=== PATIENT | female | born 1945 | race Caucasian/White ===

== ENCOUNTER → 2016-07-27 | Outpatient (CLI) | payer MEDICARE, OTHER ==
[~2016-07-27] MED LIST: ASPI81 PO; CLON1PAT TD; METF500T4 PO; METO50 PO; VALS160T2 PO
[2016-07-27 11:23] LABS: HEMATOCRIT 40.7 % (36-46); HEMOGLOBIN 13.4 g/dL (12.0-16.0)
[2016-07-27 11:34] LABS: CALCIUM, TOTAL 8.5 mg/dL (8.8-10.5); CHOL/HDL RATIO 2.2 (3.9-5.7); CREATININE 1.33 mg/dL (0.60-1.30)
== END | disposition home or self-care (01) ==
LOC: LABPV 07:17
PROVIDERS: ATTEND Internal Medicine Nephrology
DX: I12.9 Hypertensive chronic kidney disease with stage 1 through stage 4 chronic kidney disease, or unspecified chronic kidney disease (principal); N18.2 Chronic kidney disease, stage 2 (mild); E55.9 Vitamin D deficiency, unspecified; E11.9 Type 2 diabetes mellitus without complications; R60.9 Edema, unspecified; R80.9 Proteinuria, unspecified
CPT/HCPCS: 82306; 83970; 84100; 85014; 85018

== ENCOUNTER → 2016-11-06 | Outpatient (CLI) | payer MEDICARE, MEDICAID ==
[2016-11-06 12:24] LABS: HEMOGLOBIN A1C 6.9 % (4.5-6.2)
[2016-11-06 12:36] LABS: CALCIUM, TOTAL 8.4 mg/dL (8.8-10.5); CREATININE 1.58 mg/dL (0.60-1.30); POTASSIUM 4.3 mmol/L (3.5-5.1)
== END | disposition home or self-care (01) ==
LOC: LABPV 09:30
PROVIDERS: ATTEND Internal Medicine Nephrology
DX: E11.22 Type 2 diabetes mellitus with diabetic chronic kidney disease (principal); N18.2 Chronic kidney disease, stage 2 (mild); R60.9 Edema, unspecified; E55.9 Vitamin D deficiency, unspecified
CPT/HCPCS: 82306; 83036

== ENCOUNTER 2016-11-07 17:33 | Emergency (ER) | payer MEDICARE, MEDICAID ==
[~2016-11-07] VITALS: Ht 152.4 cm; Wt 77.0 kg
[2016-11-07] MEDS ORDERED: ACETAMINOPHEN 325 MG TABLET PO ONE (19:00)
[2016-11-07 19:03] LABS: BASOPHILS % (AUTO) 0.4 % (0.0-2.0); EOSINOPHILS % (AUTO) 2.9 % (1.0-6.0); HEMOGLOBIN 11.9 g/dL (12.0-16.0); LYMPHOCYTES # (AUTO) 1.4 K/uL (1.0-4.8); LYMPHOCYTES % (AUTO) 18.5 % (22.0-44.0); MEAN CORPUSCULAR HEMOGLOBIN 29.8 pg (26.0-34.0); MEAN CORPUSCULAR HGB CONC 32.1 G/dL (31.0-37.0); MEAN CORPUSCULAR VOLUME 93 fL (80-100); MONOCYTES # (AUTO) 0.5 K/uL (0.1-1.0); MONOCYTES % (AUTO) 6.8 % (2.0-9.0); NEUTROPHILS # (AUTO) 5.4 K/uL (1.8-7.7); NEUTROPHILS % (AUTO) 71.4 % (40.0-70.0); PLATELET COUNT (AUTO) 184 K/uL (150-450); RED BLOOD CELL COUNT(AUTO) 3.98 MIL/uL (4.00-5.20); RED CELL DISTRIBUTION WIDTH 13.9 % (11.5-14.5); WHITE BLOOD COUNT (AUTO) 7.6 K/uL (4.5-11.0)
[2016-11-07 19:13] LABS: INR 0.9 (0.9-1.1)
[2016-11-07 19:15] LABS: CALCIUM, TOTAL 8.5 mg/dL (8.8-10.5); CREATININE 1.73 mg/dL (0.60-1.30); POTASSIUM 4.5 mmol/L (3.5-5.1)
[2016-11-07] MEDS ORDERED: LEVOFLOXACIN 500 MG/D5% WATER 100 ML IV ONE (19:15)
[2016-11-07 19:20] LABS: ALBUMIN 3.3 g/dL (3.4-5.0); BILIRUBIN,TOTAL 0.3 mg/dL (0.1-1.0); TOTAL PROTEIN, SERUM 6.5 g/dL (6.4-8.2)
[2016-11-07] MEDS ORDERED: SODIUM CHLORIDE 0.9% 1,000 ML IV ONE (19:45)
[2016-11-07 22:56] LABS: APPEARANCE,URINE CLEAR (CLEAR); GLUCOSE, URINE (UA) 100 mg/dL (NEGATIVE); KETONES,URINE NEGATIVE (NEGATIVE); LEUKOCYTE ESTERASE ,URINE NEGATIVE (NEGATIVE); OCCULT BLOOD,URINE TRACE (NEGATIVE); PROTEIN,URINE SEE CONFIRM (NEGATIVE)
[2016-11-07 22:57] LABS: ADD UA MICROSCOPIC YES
[2016-11-07 23:01] LABS: SQUAMOUS EPITHELIAL CELL,UR Few /LPF (None Seen); SULFOSALICYLIC ACID,URINE 2+ (Negative); WBC,URINE 0-2 /HPF (0-5)
[2016-11-08 01:28] VITALS: BP 156/87
== END 2016-11-08 01:44 | disposition home or self-care (01) ==
LOC: EMS 17:34
DX: R19.7 Diarrhea, unspecified (principal); E11.9 Type 2 diabetes mellitus without complications; I10 Essential (primary) hypertension; Z79.82 Long term (current) use of aspirin
CPT/HCPCS: 36415; 71010; 80053; 81001; 83690; 85025; 85610; 85730; 93005; 96360; 96361; 99285; J7030

== ENCOUNTER → 2016-11-08 | Outpatient (CLI) | payer MEDICARE, MEDICAID | END | disposition home or self-care (01) | LOC: LABPV 09:22 | PROVIDERS: ATTEND Emergency Medicine | DX: R19.7 Diarrhea, unspecified (principal) | CPT/HCPCS: 87045; 87324; 87449 ==

== ENCOUNTER → 2017-01-30 | Outpatient (CLI) | payer MEDICARE, OTHER ==
[2017-01-30 12:28] LABS: BILIRUBIN,TOTAL 0.2 mg/dL (0.1-1.0); CALCIUM, TOTAL 8.3 mg/dL (8.8-10.5); CREATININE 1.82 mg/dL (0.60-1.30); POTASSIUM 5.2 mmol/L (3.5-5.1)
[2017-01-30 12:29] LABS: TOTAL PROTEIN, SERUM 6.4 g/dL (6.4-8.2)
== END | disposition home or self-care (01) ==
LOC: LABPV 10:40
PROVIDERS: ATTEND Internal Medicine Nephrology
DX: E11.22 Type 2 diabetes mellitus with diabetic chronic kidney disease (principal); I12.9 Hypertensive chronic kidney disease with stage 1 through stage 4 chronic kidney disease, or unspecified chronic kidney disease; N18.2 Chronic kidney disease, stage 2 (mild); R60.9 Edema, unspecified; E55.9 Vitamin D deficiency, unspecified
CPT/HCPCS: 82306; 82570; 84156

== ENCOUNTER → 2017-03-21 | Outpatient (CLI) | payer MEDICARE, OTHER ==
[~2017-03-21] MED LIST changes: -CLON1PAT TD; +CLON1PAT12 TD
[2017-03-21 12:50] LABS: CALCIUM, TOTAL 8.6 mg/dL (8.8-10.5); CHOL/HDL RATIO 2.4 (3.9-5.7); CREATININE 1.58 mg/dL (0.60-1.30)
[2017-03-21 12:53] LABS: HEMOGLOBIN A1C 5.6 % (4.5-6.2)
[2017-03-21 13:35] LABS: POTASSIUM 4.7 mmol/L (3.5-5.1)
== END | disposition home or self-care (01) ==
LOC: LABPV 09:50
PROVIDERS: ATTEND Internal Medicine Nephrology
DX: I13.0 Hypertensive heart and chronic kidney disease with heart failure and stage 1 through stage 4 chronic kidney disease, or unspecified chronic kidney disease (principal); E11.22 Type 2 diabetes mellitus with diabetic chronic kidney disease; I50.9 Heart failure, unspecified; E55.9 Vitamin D deficiency, unspecified; R60.9 Edema, unspecified; R80.9 Proteinuria, unspecified
CPT/HCPCS: 83036

== ENCOUNTER → 2018-04-15 | Outpatient (CLI) | payer MEDICARE, OTHER ==
[~2018-04-15] MED LIST changes: +METF-960 PO; -METF500T4 PO
[2018-04-15 11:05] LABS: CREATININE 2.19 mg/dL (0.60-1.30); POTASSIUM 4.6 mmol/L (3.5-5.1)
[2018-04-15 11:06] LABS: ALBUMIN 3.1 g/dL (3.4-5.0); BILIRUBIN,TOTAL 0.3 mg/dL (0.1-1.0); CALCIUM, TOTAL 8.2 mg/dL (8.8-10.5); CHOL/HDL RATIO 2.8 (3.9-5.7); PHOSPHORUS 3.3 mg/dL (2.5-4.9); TOTAL PROTEIN, SERUM 6.9 g/dL (6.4-8.2)
[2018-04-15 15:40] LABS: SODIUM TIMED,URINE 79 mmol/L (20-110); TPROTEIN TIMED,URINE 325 mg/dL
[2018-04-15 16:11] LABS: COLLECTION TIME,URINE 24 HR; CREATININE,SERUM FOR CRCL 2.19 mg/dL (0.60-1.30); SODIUM URINE, 24HR CALC 43 mmol/24H (40-220); TOTAL VOLUME,CREAT CLR 550 mL; TPROTEIN URINE, 24HRS COLL 1788 mg/24Hr (0-165)
[2018-04-15 16:12] LABS: CREAT CLEARANCE/1.73sq.meter 1 ml/min (75-115); CREATININE,URINE < 5.0 mg/dL (30.0-125.0)
== END | disposition home or self-care (01) ==
LOC: LABPV 09:09
PROVIDERS: ATTEND Internal Medicine Nephrology
DX: I12.9 Hypertensive chronic kidney disease with stage 1 through stage 4 chronic kidney disease, or unspecified chronic kidney disease (principal); E11.22 Type 2 diabetes mellitus with diabetic chronic kidney disease; N18.2 Chronic kidney disease, stage 2 (mild); R60.9 Edema, unspecified
CPT/HCPCS: 81050; 82575; 83036; 83970; 84100; 84156; 84300

== ENCOUNTER → 2018-11-04 | Outpatient (CLI) | payer MEDICARE, OTHER ==
[2018-11-04 10:05] LABS: CALCIUM, TOTAL 8.4 mg/dL (8.8-10.5); CREATININE 2.55 mg/dL (0.60-1.30); POTASSIUM 4.9 mmol/L (3.5-5.1)
== END | disposition home or self-care (01) ==
LOC: LABPV 08:12
PROVIDERS: ATTEND Internal Medicine Nephrology
DX: E55.9 Vitamin D deficiency, unspecified (principal); E11.22 Type 2 diabetes mellitus with diabetic chronic kidney disease; N18.9 Chronic kidney disease, unspecified
CPT/HCPCS: 82306

== ENCOUNTER 2018-12-30 15:20 | Emergency (ER) | payer MEDICARE, OTHER ==
[~2018-12-30] VITALS: Ht 152.4 cm; Wt 86.4 kg
[2018-12-30] MEDS ORDERED: [UNRECOGNIZED DRUG - REMARK] PO (15:44)
[2018-12-30 18:06] LABS: BASOPHILS % (AUTO) 0.6 % (0.0-2.0); HEMATOCRIT 35.1 % (36-46); HEMOGLOBIN 11.6 g/dL (12.0-16.0); LYMPHOCYTES # (AUTO) 1.3 K/uL (1.0-4.8); LYMPHOCYTES % (AUTO) 23.2 % (22.0-44.0); MEAN CORPUSCULAR HEMOGLOBIN 30.5 pg (26.0-34.0); MEAN CORPUSCULAR HGB CONC 33.2 G/dL (31.0-37.0); MEAN CORPUSCULAR VOLUME 92 fL (80-100); MONOCYTES # (AUTO) 0.5 K/uL (0.1-1.0); MONOCYTES % (AUTO) 8.4 % (2.0-9.0); NEUTROPHILS # (AUTO) 3.6 K/uL (1.8-7.7); NEUTROPHILS % (AUTO) 63.8 % (40.0-70.0); PLATELET COUNT (AUTO) 169 K/uL (150-450); RED BLOOD CELL COUNT(AUTO) 3.81 MIL/uL (4.00-5.20); RED CELL DISTRIBUTION WIDTH 13.5 % (11.5-14.5)
[2018-12-30 18:24] LABS: CALCIUM, TOTAL 8.7 mg/dL (8.8-10.5); CREATININE 3.22 mg/dL (0.60-1.30); POTASSIUM 4.4 mmol/L (3.5-5.1)
[2018-12-30 18:29] LABS: BILIRUBIN,TOTAL 0.2 mg/dL (0.1-1.0); TOTAL PROTEIN, SERUM 6.5 g/dL (6.4-8.2)
[2018-12-30 20:53] LABS: APPEARANCE,URINE CLOUDY (CLEAR); BILIRUBIN,URINE NEGATIVE (NEGATIVE); GLUCOSE, URINE (UA) NEGATIVE (NEGATIVE); KETONES,URINE NEGATIVE (NEGATIVE); LEUKOCYTE ESTERASE ,URINE MODERATE (NEGATIVE); NITRATE,URINE NEGATIVE (NEGATIVE); OCCULT BLOOD,URINE NEGATIVE (NEGATIVE); PROTEIN,URINE SEE CONFIRM (NEGATIVE); UROBILINOGEN,URINE 0.2 mg/dL (<=1.0)
[2018-12-30 21:07] LABS: BACTERIA,URINE Many /HPF (None Seen); SULFOSALICYLIC ACID,URINE 4+ (Negative)
[2018-12-30 21:08] LABS: RBC,URINE 0-2 /HPF (0-2)
[2018-12-30] MEDS ORDERED: SODIUM CHLORIDE 0.9% 500 ML IV ONE (21:15)
[2018-12-30 21:16] LABS: SQUAMOUS EPITHELIAL CELL,UR Moderate /LPF (None Seen); YEAST,URINE Rare /HPF (None Seen)
[2018-12-30 21:49] VITALS: BP 118/88
[2018-12-30] MEDS ORDERED: CEPHALEXIN MONOHYDRATE 500 MG CAPSULE PO ONE (22:15)
[2018-12-31 07:05] LABS: GLUCOSE,POINT OF CARE 188 MG/DL (70-110)
== END 2018-12-30 22:32 | disposition home or self-care (01) ==
LOC: EMS 15:23
DX: N39.0 Urinary tract infection, site not specified (principal); I10 Essential (primary) hypertension; E11.9 Type 2 diabetes mellitus without complications; Z79.82 Long term (current) use of aspirin; Z79.899 Other long term (current) drug therapy
CPT/HCPCS: 36415; 80053; 81001; 82962; 85025; 87077; 87086; 87186; 99283; J7040

== ENCOUNTER → 2019-01-31 | Outpatient (CLI) | payer MEDICARE, OTHER ==
[~2019-01-31] MED LIST changes: -METF-960 PO; +[UNRECOGNIZED DRUG - REMARK] PO
[2019-01-31 11:22] LABS: HEMATOCRIT 39.9 % (36-46); HEMOGLOBIN 13.1 g/dL (12.0-16.0)
[2019-01-31 11:49] LABS: ALBUMIN 3.8 g/dL (3.4-5.0); BILIRUBIN,TOTAL 0.5 mg/dL (0.1-1.0); CHOL/HDL RATIO 3.6 (3.9-5.7); CREATININE 3.37 mg/dL (0.60-1.30); PHOSPHORUS 4.3 mg/dL (2.5-4.9); POTASSIUM 4.6 mmol/L (3.5-5.1); TOTAL PROTEIN, SERUM 7.4 g/dL (6.4-8.2)
[2019-01-31 12:21] LABS: HEMOGLOBIN A1C 7.5 % (4.5-6.2)
[2019-01-31 12:21] LABS: CREATININE,URINE RANDOM 82.9 mg/dL (30.0-125.0)
== END | disposition home or self-care (01) ==
LOC: LABPV 07:55
PROVIDERS: ATTEND Internal Medicine Nephrology
DX: I12.9 Hypertensive chronic kidney disease with stage 1 through stage 4 chronic kidney disease, or unspecified chronic kidney disease (principal); E11.22 Type 2 diabetes mellitus with diabetic chronic kidney disease; N18.9 Chronic kidney disease, unspecified; D63.1 Anemia in chronic kidney disease
CPT/HCPCS: 82570; 83036; 83970; 84100; 84156; 85014; 85018

== ENCOUNTER → 2019-04-16 | Outpatient (CLI) | payer MEDICARE, OTHER ==
[2019-04-16 11:03] LABS: CALCIUM, TOTAL 8.9 mg/dL (8.8-10.5); CREATININE 3.01 mg/dL (0.60-1.30); POTASSIUM 4.8 mmol/L (3.5-5.1)
== END | disposition home or self-care (01) ==
LOC: LABPV 08:09
PROVIDERS: ATTEND Internal Medicine Nephrology
DX: E11.22 Type 2 diabetes mellitus with diabetic chronic kidney disease (principal); E55.9 Vitamin D deficiency, unspecified
CPT/HCPCS: 82306

== ENCOUNTER → 2019-07-14 | Outpatient (CLI) | payer MEDICARE, OTHER ==
[~2019-07-14] MED LIST changes: +ASPI-728 PO; -ASPI81 PO
[2019-07-14 10:52] LABS: HEMATOCRIT 38.1 % (36-46); HEMOGLOBIN 12.7 g/dL (12.0-16.0)
[2019-07-14 11:00] LABS: CALCIUM, TOTAL 8.4 mg/dL (8.8-10.5); CREATININE 3.09 mg/dL (0.60-1.30); PHOSPHORUS 3.8 mg/dL (2.5-4.9); POTASSIUM 4.5 mmol/L (3.5-5.1)
[2019-07-14 11:03] LABS: HEMOGLOBIN A1C 6.3 % (4.5-6.2)
== END | disposition home or self-care (01) ==
LOC: LABPV 08:09
PROVIDERS: ATTEND Internal Medicine Nephrology
DX: E11.22 Type 2 diabetes mellitus with diabetic chronic kidney disease (principal); N18.9 Chronic kidney disease, unspecified; D63.1 Anemia in chronic kidney disease
CPT/HCPCS: 83036; 84100; 85014; 85018

== ENCOUNTER → 2019-12-24 | Outpatient (CLI) | payer MEDICARE, OTHER ==
[2019-12-24 10:48] LABS: HEMATOCRIT 41.2 % (36-46); HEMOGLOBIN 13.8 g/dL (12.0-16.0)
[2019-12-24 11:09] LABS: ALBUMIN 3.8 g/dL (3.4-5.0); BILIRUBIN,TOTAL 0.5 mg/dL (0.1-1.0); CHOL/HDL RATIO 2.1 (3.9-5.7); CREATININE 3.24 mg/dL (0.60-1.30); POTASSIUM 4.3 mmol/L (3.5-5.1); TOTAL PROTEIN, SERUM 7.8 g/dL (6.4-8.2)
== END | disposition home or self-care (01) ==
LOC: LABPV 09:34
PROVIDERS: ATTEND Internal Medicine Nephrology
DX: E11.22 Type 2 diabetes mellitus with diabetic chronic kidney disease (principal); N18.4 Chronic kidney disease, stage 4 (severe); E55.9 Vitamin D deficiency, unspecified; E78.5 Hyperlipidemia, unspecified; D63.1 Anemia in chronic kidney disease
CPT/HCPCS: 82306; 82570; 83970; 84156; 85014; 85018

== ENCOUNTER → 2020-03-08 | Outpatient (CLI) | payer MEDICARE, OTHER ==
[2020-03-08 13:12] LABS: ALBUMIN 3.5 g/dL (3.4-5.0); BILIRUBIN,TOTAL 0.4 mg/dL (0.1-1.0); CALCIUM, TOTAL 8.5 mg/dL (8.8-10.5); CREATININE 4.1 mg/dL (0.60-1.30); PHOSPHORUS 4.9 mg/dL (2.5-4.9); POTASSIUM 4.8 mmol/L (3.5-5.1); TOTAL PROTEIN, SERUM 6.8 g/dL (6.4-8.2)
[2020-03-08 13:24] LABS: HEMOGLOBIN A1C 7.2 % (3.8-5.6)
== END | disposition home or self-care (01) ==
LOC: LABPV 10:56
PROVIDERS: ATTEND Internal Medicine Nephrology
DX: E11.22 Type 2 diabetes mellitus with diabetic chronic kidney disease (principal); N18.5 Chronic kidney disease, stage 5; R80.9 Proteinuria, unspecified; E55.9 Vitamin D deficiency, unspecified
CPT/HCPCS: 82306; 82570; 83036; 83970; 84100; 84156

== ENCOUNTER → 2020-11-09 | Outpatient (CLI) | payer MEDICARE, OTHER ==
[~2020-11-09] MED LIST changes: +ASPI-1450 PO; -ASPI-728 PO
[2020-11-09 10:15] LABS: HEMOGLOBIN A1C 6.6 % (3.8-5.6)
[2020-11-09 10:18] LABS: CALCIUM, TOTAL 8.3 mg/dL (8.8-10.5); CHOL/HDL RATIO 2.2 (3.9-5.7); CREATININE 3.35 mg/dL (0.60-1.30); PHOSPHORUS 4.7 mg/dL (2.5-4.9); POTASSIUM 5.4 mmol/L (3.5-5.1)
== END | disposition home or self-care (01) ==
LOC: LABPV 08:59
PROVIDERS: ATTEND Internal Medicine Nephrology
DX: E11.22 Type 2 diabetes mellitus with diabetic chronic kidney disease (principal); N18.5 Chronic kidney disease, stage 5; E55.9 Vitamin D deficiency, unspecified; R80.9 Proteinuria, unspecified
CPT/HCPCS: 80048; 80061; 82306; 82570; 83036; 83970; 84100; 84156

== ENCOUNTER → 2021-01-12 | Outpatient (CLI) | payer MEDICARE, OTHER ==
[2021-01-12 10:59] LABS: HEMATOCRIT 33.2 % (36-46); HEMOGLOBIN 10.8 g/dL (12.0-16.0)
[2021-01-12 11:52] LABS: CALCIUM, TOTAL 8.3 mg/dL (8.8-10.5); CREATININE 5.18 mg/dL (0.60-1.30)
[2021-01-13 11:08] LABS: APPEARANCE,URINE CLOUDY (CLEAR); BILIRUBIN,URINE NEGATIVE (NEGATIVE); GLUCOSE, URINE (UA) NEGATIVE (NEGATIVE); KETONES,URINE NEGATIVE (NEGATIVE); LEUKOCYTE ESTERASE ,URINE SMALL (NEGATIVE); NITRATE,URINE NEGATIVE (NEGATIVE); OCCULT BLOOD,URINE NEGATIVE (NEGATIVE); PH,URINE 5.5 (5.0-8.0); PROTEIN,URINE SEE CONFIRM (NEGATIVE); UROBILINOGEN,URINE 0.2 mg/dL (<=1.0)
[2021-01-13 11:17] LABS: SULFOSALICYLIC ACID,URINE 3+ (Negative)
[2021-01-13 11:18] LABS: BACTERIA,URINE Many /HPF (None Seen); RBC,URINE None Seen /HPF (0-2); SQUAMOUS EPITHELIAL CELL,UR Few /LPF (None Seen); WBC,URINE 26-50 /HPF (0-5)
== END | disposition home or self-care (01) ==
LOC: LABPV 09:01
PROVIDERS: ATTEND Internal Medicine Nephrology
DX: N18.5 Chronic kidney disease, stage 5 (principal); D63.1 Anemia in chronic kidney disease
CPT/HCPCS: 80048; 81001; 81002; 85014; 85018; 87086

== ENCOUNTER → 2021-01-18 | Outpatient (CLI) | payer MEDICARE, OTHER | END | disposition home or self-care (01) | LOC: LABPV 11:23 | PROVIDERS: ATTEND Internal Medicine Nephrology | DX: E78.5 Hyperlipidemia, unspecified (principal) | CPT/HCPCS: 84132 ==